=== PATIENT | female | born 2000 | race American Indian/Alaskan Native ===

== ENCOUNTER 2021-01-09 11:42 | Emergency (ER) | payer SELFPAY ==
[2021-01-09] MEDS ORDERED: LIDOCAINE (1%) 10 MG/1 ML VIAL 20 ML MDV INFILTRATI ONE (11:56)
[2021-01-09 12:16] VITALS: BP 118/74
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
[2021-01-09] MEDS ORDERED: TETANUS,DIPH,PERTUSS(ACELL) VACCINE 0.5 ML SYRINGE IM ONE (13:19)
== END 2021-01-09 13:57 | disposition home or self-care (01) ==
LOC: ED 11:42
DX: S61.412A Laceration without foreign body of left hand, initial encounter (principal); F17.200 Nicotine dependence, unspecified, uncomplicated; Y08.89XA Assault by other specified means, initial encounter; Y93.89 Activity, other specified; Y92.89 Other specified places as the place of occurrence of the external cause; Y99.8 Other external cause status
CPT/HCPCS: 12002; 73060; 73090; 90471; 90715; 99283; J3490

== ENCOUNTER 2021-01-24 12:52 | Emergency (ER) | payer SELFPAY ==
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
[2021-01-24 13:38] VITALS: BP 129/75
== END 2021-01-24 13:40 | disposition home or self-care (01) ==
LOC: ED 12:52
DX: S41.112D Laceration without foreign body of left upper arm, subsequent encounter (principal); X58.XXXD Exposure to other specified factors, subsequent encounter
CPT/HCPCS: 99282